=== PATIENT | female | born 2005 | race Two or more races ===

== ENCOUNTER 2025-06-05 17:05 | Emergency (ER) | payer BC, OTHER ==
[2025-06-05] MEDS ORDERED: ACETAMINOPHEN 500 MG TAB ONE (19:19)
[2025-06-05 19:43] LABS: Absolute Lymphocytes (CBC) 2.5 K/uL (0.7-4.9); Hematocrit 44.7 % (36.0-45.0); Hemoglobin 14.7 g/dL (12.0-15.0); MCH 27.8 pg (27.0-35.0); MCHC 33.0 g/dL (32.0-36.0); MCV 84.4 fL (80-100); MPV 7.8 fL (7.6-11.3); Nucleated RBC Absolute Count 0.0 (0-0); Nucleated Red Blood Cells % 0.0 % (0-0); RBC Red Blood Cell Count 5.30 M/uL (3.86-4.86); White Blood Count 8.60 thou/uL (4.3-10.9)
[2025-06-05 19:47] LABS: Urine Crystals Unidentified Few /HPF (None Seen); Urine Culture Reflex Order NOT NEEDED; Urine Microscopic Reflex YN ORDER UMIC
[2025-06-05 20:01] LABS: ALT/SGPT 42.0 U/L (13-56); AST/SGOT 18.0 U/L (15-37); Albumin 4.2 g/dL (3.4-5.0); Albumin/Globulin Ratio 1.0 (1.1-1.8); Alkaline Phosphatase 77.0 U/L (45-117); Anion Gap 8.9 mEq/L (5.0-15.0); BUN Blood Urea Nitrogen 11.0 mg/dL (7-18); Globulin 4.1 g/dL (2.3-3.5); Glucose Level 89.0 mg/dL (74-106); Potassium 3.9 mEq/L (3.5-5.1)
[2025-06-05] MEDS ORDERED: CEPHALEXIN 250 MG CAP ONE (20:15)
--- NOTE | 2025-06-05 20:21 | ER ---
Nurse's Notes [facility] Name: Rosalind Blackwell Age: 20 yrs Sex: Female : 2005 Arrival Date: 06/05/2025 Time: 17:05 Bed 8 Private MD: Diagnosis: Lower abdominal pain, unspecified;UTI/ Urinary tract infection, site not specified Presentation: 06/05 17:38 Chief complaint: Patient states: she has had lower abdomen/pelvic pain for me1 endometriosis and during the recovery period patient's ex had sex with her when she was "out of her mind on pain meds and alcohol". Her pain has continued to worsen and she feels like the IUD may be causing her pain. Pain level 9/10. Coronavirus screen: At this time, the client does not indicate any symptoms associated with coronavirus-19. Ebola Screen: No symptoms or risks identified at this time. Initial Sepsis Screen: Does the patient meet any 2 criteria? No. Patient's initial sepsis screen is negative. Does the patient have a suspected source of infection? No. Patient's initial sepsis screen is negative. Risk Assessment: Do you want to hurt yourself or someone else? Patient reports no desire to harm self or others. Onset of symptoms is unknown. 17:38 Method Of Arrival: Ambulatory ia1 17:38 Acuity: DOREEN 3 me1 ACCOUNTS PAYABLE PROFESSIONAL: 17:41 LMP N/A - control method, Not me1 Historical: - Allergies: 17:41 No Known Allergies; me1 - Home Meds: 17:41 None [Active]; me1 - PMHx: 17:41 Endometriosis of vagina; me1 - PSHx: 17:41 leg; me1 - Immunization history:: Adult Immunizations up to date. - Infectious Disease History:: Denies. - Social history:: Smoking status: Patient denies any tobacco usage or history of. Screenin:21 [facility] ED Fall Risk Assessment (Adult) History of falling in the last 3 months, lg3 including since admission No falls in past 3 months (0 pts) Confusion or Disorientation No (0 pts) Intoxicated or Sedated No (0 pts) Impaired Gait No (0 pts) Mobility Assist Device Used No (0 pt) Altered Elimination No (0 pt) Score/Fall Risk Level 0 - 2 = Low Risk Oriented to surroundings, Maintained a safe environment, Educated pt \\T\\ family on fall prevention, incl call for assistance when getting out of bed, Assessed \\T\\ reinforced patient's understanding of fall precautions. Abuse screen: Denies threats or abuse. Denies injuries from another. Nutritional screening: No deficits noted. Tuberculosis screening: No symptoms or risk factors identified. Assessment: 19:21 General: Appears in no apparent distress. comfortable, Behavior is calm, cooperative. lg3 Pain: Complains of pain in pelvis Pain does not radiate. Pain currently is 3 out of 10 on a pain scale. Neuro: No deficits noted. [place] Agitation-Sedation Scale (RASS): 0 - Alert and Calm Level of Consciousness is awake, alert, obeys commands, Oriented to person, place, time, situation. Cardiovascular: No deficits noted. Denies chest pain, shortness of breath, Capillary refill < 3 seconds Clubbing of nail beds is absent JVD is absent Patient's skin is warm and dry. Respiratory: No deficits noted. Airway is patent Respiratory effort is even, unlabored, Respiratory pattern is regular, symmetrical. GI: No deficits noted. Abdomen is round non-distended, Bowel sounds present X 4 quads. Abd is soft and non tender X 4 quads. Reports lower abdominal pain. : No deficits noted. Urine is clear, Reports pain in suprapubic area. EENT: No deficits noted. No signs and/or symptoms were reported regarding the EENT system. Derm: No deficits noted. No signs and/or symptoms reported regarding the dermatologic system. Skin is intact, is healthy with good turgor, Skin is dry, Skin is normal, Skin temperature is warm. Musculoskeletal: No deficits noted. No signs and/or symptoms reported regarding the musculoskeletal system. Circulation, motion, and sensation intact. Range of motion: intact in all extremities. 20:43 Reassessment: Patient appears in no apparent distress at this time. No changes from lg3 previously documented assessment. Patient and/or family updated on plan of care and expected duration. Pain level reassessed. Patient is alert, oriented x 3, equal unlabored respirations, skin warm/dry/pink. Vital Signs: 17:38 BP 128 / 96; Pulse 81; Resp 16; Temp 98.2; Pulse Ox 98% ; Weight 81.65 kg; Height 5 ft. me1 5 in. ; Pain 9/10; 19:21 BP 116 / 80; Pulse 68; Resp 16 S; Pulse Ox 100% on R/A; lg3 20:44 BP 122 / 82; Pulse 73; Resp 17 S; Pulse Ox 100% on R/A; lg3 17:38 Body Mass Index 29.95 (81.65 kg, 165.1 cm) me1 17:38 Pain Scale: Adult [facility] [place] Course: 17:09 Patient arrived in ED. al6 17:15 Pedro Voss NP is PHCP. cr8 17:15 Sana Mendoza MD is Attending Physician. cr8 17:41 Triage completed. me1 17:41 Arm band placed on Patient placed in waiting room. me1 19:05 Aundrea Watters, RN is Primary Nurse. lg3 19:21 Patient has correct armband on for positive identification. Placed in gown. Bed in low lg3 position. Call light in reach. Side rails up X 1. Client placed on continuous cardiac and pulse oximetry monitoring. NIBP monitoring applied. Door closed. Noise minimized. Warm blanket given. Pillow given. Family accompanied patient. 19:21 Initial lab(s) drawn, by me, sent to lab. Urine collected: clean catch specimen, clear. lg3 Inserted saline lock: 20 gauge in right antecubital area, using aseptic technique. Blood collected. Flushed with 10 mL NS. 19:24 Test, Urine Sent. lg3 19:24 UA Rfx Jac Cult if indicated Sent. lg3 19:24 CMP Sent. lg3 19:24 CBC with Diff Sent. lg3 20:26 IV discontinued, intact, bleeding controlled, No redness/swelling at site. Pressure km10 dressing applied. 20:45 No provider procedures requiring assistance completed. lg3 Administered Medications: 19:24 Drug: Acetaminophen PO 1000 mg PO once Route: PO; lg3 20:19 Follow up: Response: No adverse reaction lg3 20:36 Drug: Cephalexin PO 500 mg PO once Route: PO; lg3 20:44 Follow up: Response: No adverse reaction lg3 Medication: 19:21 VIS not applicable for this client. lg3 Outcome: 20:20 Discharge ordered by . cr8 20:45 Discharged to home ambulatory, lg3 20:45 Condition: stable 20:45 Discharge instructions given to patient, Instructed on discharge instructions, follow up and referral plans. medication usage, Demonstrated understanding of instructions, follow-up care, medications, Prescriptions given X 1, 20:45 Patient left the ED. lg3 Signatures: Aundrea Watters RN RN lg3 Mary Carpio RN RN me1 Macarena Wise al6 Pedro Voss, LEONOR DIRECTOR OF MATERNITY SERVICES cr8 Ju Marrero, RN RN [phone]
--- NOTE | 2025-06-05 20:21 | EDPHYS ---
Physician Documentation [facility] Name: Rosalind Blackwell Age: 20 yrs Sex: Female : 2005 Arrival Date: 06/05/2025 Time: 17:05 Bed 8 Private MD: ED Physician Sana Mendoza HPI: 06/05 17:42 This 20 yrs old Female presents to ER via Ambulatory with complaints of Abdominal Pain. cr8 17:42 Patient is a 20-year-old female with a history of endometriosis that comes into the 8 emergency room complaining of abdominal pain for 6 months. Reports she had surgery in October for endometriosis. Reports they put her IUD in at that time. States she continues to have pain since October. Today's pain has not changed.. There is no new symptoms associated with the pain. She denies vomiting diarrhea. No dysuria. Denies being . Ambulatory.. [facility]: 17:41 LMP N/A - control method, Not me1 Historical: - Allergies: 17:41 No Known Allergies; me1 - Home Meds: 17:41 None [Active]; me1 - PMHx: 17:41 Endometriosis of vagina; me1 - PSHx: 17:41 leg; me1 - Immunization history:: Adult Immunizations up to date. - Infectious Disease History:: Denies. - Social history:: Smoking status: Patient denies any tobacco usage or history of. ROS: 17:42 Constitutional: as per HPI cr8 Exam: 17:42 Constitutional: This is a well developed, well nourished patient who is awake, alert, cr8 and in no acute distress. Abdomen/GI: Soft, non-tender, with normal bowel sounds. No distension. No guarding or rebound. Skin: Warm, dry with normal turgor. Normal color with no rashes, no lesions, and no evidence of cellulitis. MS/ Extremity: Pulses equal, no cyanosis. Neurovascular intact. Full, normal range of motion. Neuro: Awake and alert, GCS 15, oriented to person, place, time, and situation. Cranial nerves II-XII grossly intact. Motor strength 5/5 in all extremities. Sensory grossly intact. 20:17 Special observations: no evidence of discomfort, texting on her phone, cr8 Vital Signs: 17:38 BP 128 / 96; Pulse 81; Resp 16; Temp 98.2; Pulse Ox 98% ; Weight 81.65 kg; Height 5 ft. me1 5 in. ; Pain 9/10; 19:21 BP 116 / 80; Pulse 68; Resp 16 S; Pulse Ox 100% on R/A; lg3 20:44 BP 122 / 82; Pulse 73; Resp 17 S; Pulse Ox 100% on R/A; lg3 17:38 Body Mass Index 29.95 (81.65 kg, 165.1 cm) me1 17:38 Pain Scale: Adult me1 MDM: 17:41 Medical Screening Exam initiated cr8 20:17 Data reviewed: vital signs, nurses notes, lab test result(s), CBC, electrolytes, cr8 hepatic panel, urinalysis, pyuria. ED course: Abdominal exam without peritoneal signs. No evidence of acute abdomen at this time. Well appearing. Considered ovarian torsion but doubt given history and presentation. Given work up low suspicion for acute hepatobiliary disease (including acute cholecystitis), acute pancreatitis (neg lipase), PUD and gastric perforation, acute infectious processes (pneumonia, hepatitis, pyelonephritis), acute appendicitis, vascular catastrophe, bowel obstruction or viscus perforation, diverticulitis. Presentation not consistent with other acute, emergent causes of abdominal pain at this time. Consider doing a CAT scan of her abdomen pelvis however this patient is having this pain for 6 months or greater. She reports there is been no changes to the characterization of the pain. She is alert and well-appearing so imaging would be likely not beneficial in this situation. Her urinalysis did come back however suggestive of a urinary tract infection. Will go ahead and treat her with cephalexin. Advised treatment with Tylenol and ibuprofen for pain. Discussed with her the need to follow with [facility] for further evaluation of her chronic abdominal pain. She wants her IUD removed so she can follow-up with her PCP for that also. No emergent condition identified during her evaluation. 06/05 17:42 Order name: CBC with Diff; Complete Time: 19:58 cr8 06/05 17:42 Order name: CMP; Complete Time: 20:05 cr8 06/05 17:42 Order name: UA Rfx Jac Cult if indicated; Complete Time: 19:58 cr8 06/05 17:42 Order name: Test, Urine; Complete Time: 19:58 cr8 Administered Medications: 19:24 Drug: Acetaminophen PO 1000 mg PO once Route: PO; lg3 20:19 Follow up: Response: No adverse reaction lg3 20:36 Drug: Cephalexin PO 500 mg PO once Route: PO; lg3 20:44 Follow up: Response: No adverse reaction lg3 Disposition Summary: 06/05/25 20:20 Discharge Ordered Notes: Location: Home cr8 Condition: Stable cr8 Diagnosis - Lower abdominal pain, unspecified cr8 - UTI/ Urinary tract infection, site not specified cr8 Followup: cr8 - With: Private Physician - When: 5 - 6 days - Reason: Recheck today's complaints, Continuance of care, Re-evaluation by your physician Followup: cr8 - With: Emergency Department - When: As needed - Reason: Fever > 102 F, Trouble breathing, Worsening of condition Discharge Instructions: - Discharge Summary Sheet cr8 - Abdominal Pain, Adult cr8 - Urinary Tract Infection, Adult cr8 Forms: - Medication Reconciliation Form cr8 - Antibiotic Education cr8 - Patient Portal Instructions cr8 - Leadership Thank You Letter cr8 Prescriptions: - Cephalexin 500 mg Oral capsule - take 1 capsule ORAL route every 12 hours for 5 days; 10 capsule; Refills: 0, cr8 Product Selection Permitted Signatures: Dispatcher [employer] Aundrea Rushing RN RN lg3 Mary Carpio RN RN me1 Pedro Voss, SITE SUPERVISOR SITE SUPERVISOR cr8 Corrections: (The following items were deleted from the chart) 17:42 17:42 CBC+H.LAB.BRZ ordered. EDMS EDMS 17:42 17:42 COMPREHENSIVE METABOLIC PANEL+C.LAB.BRZ ordered. EDMS EDMS 17:42 17:42 UA Rfx Jac Cult if indicated+U.LAB.BRZ ordered. EDMS EDMS 17:42 17:42 Test, Urine+UC.LAB.BRZ ordered. EDMS EDMS
[2025-06-05 21:22] VITALS: TEMP 98.2
[2025-06-05 21:23] VITALS: O2SAT 100
[2025-06-05 21:24] VITALS: BP 122/82
== END 2025-06-05 20:45 | disposition home or self-care (01) ==
LOC: ER 17:05
DX: N39.0 Urinary tract infection, site not specified (principal)
CPT/HCPCS: 36415; 80053; 81001; 81025; 85025; 99284